=== PATIENT | female | born 1995 | race Caucasian/White ===

== ENCOUNTER → 2020-02-16 10:04 | Outpatient (BNVA) | payer MEDICAID, SELFPAY | PROVIDERS: PCP Registered Nurse; Visit Provider Registered Nurse | DX: N91.2 Amenorrhea, unspecified (principal); Z3A.01 Less than 8 weeks gestation of pregnancy | CPT/HCPCS: 81025 ==

== ENCOUNTER → 2020-02-22 15:06 | Outpatient (BNVA) | payer MEDICAID, SELFPAY | PROVIDERS: PCP Registered Nurse; Visit Provider Nurse Practitioner Women's Health | DX: Z34.90 Encounter for supervision of normal pregnancy, unspecified, unspecified trimester (principal); J30.2 Other seasonal allergic rhinitis | CPT/HCPCS: 76817; 81000 ==

== ENCOUNTER → 2020-03-24 14:27 | Outpatient (BNVA) | payer MEDICAID, SELFPAY | PROVIDERS: PCP Registered Nurse; Visit Provider Obstetrics & Gynecology | DX: O09.91 Supervision of high risk pregnancy, unspecified, first trimester (principal) | CPT/HCPCS: 80053; 80307; 81000 ==

== ENCOUNTER → 2020-03-28 10:37 | Outpatient (BNVA) | payer MEDICAID, SELFPAY | PROVIDERS: PCP Registered Nurse; Visit Provider Obstetrics & Gynecology | DX: O09.91 Supervision of high risk pregnancy, unspecified, first trimester (principal) | CPT/HCPCS: 84156; 85027; 86592; 86762; 86803; 86850; 86900; 87340 ==

== ENCOUNTER → 2020-04-07 14:30 | Outpatient (BNVA) | payer MEDICAID, SELFPAY | PROVIDERS: PCP Nurse Practitioner Family; Visit Provider Obstetrics & Gynecology | DX: O09.299 Supervision of pregnancy with other poor reproductive or obstetric history, unspecified trimester (principal) | CPT/HCPCS: 81000; 87340; 87491; 87591; 88175 ==

== ENCOUNTER → 2020-05-05 11:24 | Outpatient (BNVA) | payer MEDICAID, SELFPAY | PROVIDERS: PCP Nurse Practitioner Family; Visit Provider Nurse Practitioner Women's Health | DX: O09.299 Supervision of pregnancy with other poor reproductive or obstetric history, unspecified trimester (principal); O09.899 Supervision of other high risk pregnancies, unspecified trimester; F17.210 Nicotine dependence, cigarettes, uncomplicated | CPT/HCPCS: 81000 ==

== ENCOUNTER 2020-05-24 08:08 | Outpatient (CLI) | payer MEDICAID, SELFPAY ==
--- NOTE | 2020-05-24 08:14 | USCV_ITS ---
Aayush Erica Age: 25 Gender: F : 1995 Exam Date: 05/24/2020 08:31 Ordering Phys: Rosa Hernandez MD ([email or web address]) Technologist: Kyra Lassiter [place] [facility] [place]: CARDIOM[place]ATH[place] BP: / HR: 86 Rhythm: Sinus Technical Quality: Adequate MEASUREMENTS (Male / Female) Normal Values 2D ECHO LV Diastolic Diameter PLAX 4.5 cm 4.2 - 5.9 / 3.9 - 5.3 cm LV Systolic Diameter PLAX 3.6 cm LV Chamber Size 3.7 cm IVS Diastolic Thickness 1.0 cm 0.6 - 1.0 / 0.6 - 0.9 cm IVS Systolic Thickness 1.5 cm LVPW Diastolic Thickness 1.3 cm 0.6 - 1.0 / 0.6 - 0.9 cm LVPW Systolic Thickness 1.6 cm RV Chamber Size 3.2 cm LVOT Diameter 2.0 cm LV Ejection Fraction 2D Teich 43.6 % LV Ejection Fraction MOD 2C 49.1 % LV Ejection Fraction 2C AL 48.8 % LA Diameter 2.9 cm LA Width 3.0 cm LA Height 4.6 cm RA Width 3.1 cm RA Height 4.2 cm Aorta at Sinotubular Diameter 2.9 cm M-MODE LV Diastolic Diameter MM 5.2 cm 4.2 - 5.9 / 3.9 - 5.3 cm LV Systolic Diameter MM 3.8 cm LV Ejection Fraction MM Teich 53.4 % IVS Diastolic Thickness MM 0.9 cm 0.6 - 1.0 / 0.6 - 0.9 cm IVS Systolic Thickness MM 1.3 cm LVPW Diastolic Thickness MM 1.2 cm 0.6 - 1.0 / 0.6 - 0.9 cm LVPW Systolic Thickness MM 1.5 cm RV Diastolic Diameter MM 1.4 cm Aortic Annulus Diameter 2.9 cm LA Ao Ratio MM 1.2 MV E Point Septal Separation 1.0 cm DOPPLER AV Peak Velocity 158.3 cm/s LVOT Peak Velocity 88.7 cm/s AV Area Cont Eq vti 1.9 cm squared AV Area Cont Eq pk 1.8 cm squared MV Area PHT 9.2 cm squared Mitral E to A Ratio 0.8 MV E' Velocity 55.0 cm/s Mitral E to MV E' Ratio 6.4 Mitral E to LV E' Lateral Ratio 6.3 Mitral E to LV E' Septal Ratio 6.5 TR Peak Velocity 137.1 cm/s TR Peak Gradient 7.5 mmHg TR Mean Velocity 91.3 cm/s TR Mean Gradient 3.7 mmHg TR Velocity Time Integral 28.3 cm TV Peak E Velocity 87.0 cm/s Right Atrial Pressure 3.0 mmHg Pulmonary Artery Systolic Pressu 10.5 mmHg PV Peak Velocity 75.0 cm/s RV Acceleration Time 0.1 s RV Ejection Time 0.3 s RV AcT/ET 0.4 FINDINGS Left Ventricle Normal left ventricular cavity size. Low normal left ventricular systolic function. Left ventricular ejection fraction is estimated at 53 %. Normal diastolic function. Right Ventricle The right ventricle is normal in size and function. Right Atrium The right atrium is normal in size. Left Atrium The left atrium is normal in size. Mitral Valve Structurally normal mitral valve without significant stenosis or prolapse. There is no mitral regurgitation. Aortic Valve Structurally normal aortic valve without significant sclerosis or stenosis. There is no aortic regurgitation. Tricuspid Valve Structurally normal tricuspid valve without significant stenosis or regurgitation. Pulmonary artery systolic pressure is normal. Pulmonic Valve Structurally normal pulmonic valve without significant stenosis. There is no pulmonic regurgitation. Pericardium Normal pericardium without effusion. Aorta Normal ascending aorta dimension. CONCLUSIONS 1-Normal left ventricular cavity size. Low normal left ventricular systolic function. Left ventricular ejection fraction is estimated at 53 %. Normal diastolic function. 2-No significant chamber abnormalities. 3-There is no pericardial effusion. 4-No significant valve abnormalities. 5-Pulmonary artery systolic pressure is within normal limits. 6-Right atrial pressure is around 5 mm of mercury. 7-No significant change since the prior echocardiogram study of 11/11/2017. Rosa Hernandez MD (Electronically Signed) Final Date: 25 May 2020 17:54 S
== END 2020-05-24 08:09 | disposition home or self-care (01) ==
LOC: RAD 08:10
PROVIDERS: PCP Nurse Practitioner Family; Visit Provider Internal Medicine Cardiovascular Disease
DX: I47.1 Supraventricular tachycardia (principal); O09.899 Supervision of other high risk pregnancies, unspecified trimester
CPT/HCPCS: 93306

== ENCOUNTER → 2020-06-05 10:17 | Outpatient (BNVA) | payer MEDICAID, SELFPAY | PROVIDERS: PCP Nurse Practitioner Family; Visit Provider Obstetrics & Gynecology | DX: O09.299 Supervision of pregnancy with other poor reproductive or obstetric history, unspecified trimester (principal); O09.899 Supervision of other high risk pregnancies, unspecified trimester; F17.210 Nicotine dependence, cigarettes, uncomplicated | CPT/HCPCS: 81000 ==

== ENCOUNTER → 2020-06-23 12:13 | Outpatient (BNVA) | payer MEDICAID, SELFPAY | PROVIDERS: PCP Nurse Practitioner Family; Visit Provider Emergency Medicine | DX: N39.0 Urinary tract infection, site not specified (principal); Z33.1 Pregnant state, incidental | CPT/HCPCS: 81000; 87086 ==

== ENCOUNTER → 2020-07-07 09:47 | Outpatient (BNVA) | payer MEDICAID, SELFPAY | PROVIDERS: PCP Nurse Practitioner Family; Visit Provider Obstetrics & Gynecology | DX: O09.299 Supervision of pregnancy with other poor reproductive or obstetric history, unspecified trimester (principal); O09.899 Supervision of other high risk pregnancies, unspecified trimester; F17.210 Nicotine dependence, cigarettes, uncomplicated | CPT/HCPCS: 81000; 82950 ==

== ENCOUNTER → 2020-08-04 08:07 | Outpatient (BNVA) | payer BC, MEDICAID, SELFPAY | PROVIDERS: PCP Nurse Practitioner Family; Visit Provider Obstetrics & Gynecology | DX: O09.299 Supervision of pregnancy with other poor reproductive or obstetric history, unspecified trimester (principal) | CPT/HCPCS: 81000; 85027 ==

== ENCOUNTER → 2020-08-11 08:13 | Outpatient (BNVA) | payer BC, MEDICAID, SELFPAY | PROVIDERS: PCP Nurse Practitioner Family; Visit Provider Obstetrics & Gynecology | DX: O23.43 Unspecified infection of urinary tract in pregnancy, third trimester (principal); Z3A.00 Weeks of gestation of pregnancy not specified | CPT/HCPCS: 81000 ==

== ENCOUNTER → 2020-08-25 08:30 | Outpatient (BNVA) | payer BC, SELFPAY | PROVIDERS: PCP Nurse Practitioner Family; Visit Provider Obstetrics & Gynecology | DX: O09.299 Supervision of pregnancy with other poor reproductive or obstetric history, unspecified trimester (principal); O09.899 Supervision of other high risk pregnancies, unspecified trimester; F17.210 Nicotine dependence, cigarettes, uncomplicated; O23.43 Unspecified infection of urinary tract in pregnancy, third trimester | CPT/HCPCS: 81000 ==

== ENCOUNTER → 2020-09-07 11:08 | Outpatient (BNVA) | payer BC, SELFPAY | PROVIDERS: PCP Nurse Practitioner Family; Visit Provider Obstetrics & Gynecology | DX: Z34.90 Encounter for supervision of normal pregnancy, unspecified, unspecified trimester (principal) | CPT/HCPCS: 81000 ==

== ENCOUNTER 2020-09-15 11:55 | Outpatient (CLI) | payer BC, MEDICAID, SELFPAY ==
[2020-09-15] VITALS (10 sets, daily range): BP systolic 100–120; BP diastolic 51–68; PULSE 73–103; RESP 16; TEMP 36.3
[2020-09-15 13:30] LABS: Add Urine Culture? No; Bacteria Urine 1+ /hpf; Bilirubin Urine Neg (Negative); Blood Urine Neg (Negative); Glucose Urine UA Norm (Normal); Ketones Urine Negative (Negative); Leukocyte Esterase Urine Negative (Negative); Nitrate Urine Negative (Negative); Protein Urine Neg (Negative); Squamous Epithelial Cell Urine 25-40 /hpf (0-5); Urine Appearance SL Hazy (CLEAR); Urine Color Straw (Yellow); Urobilinogen Urine Norm (Negative); pH Urine 8 (5-7)
== END 2020-09-15 14:16 | disposition home or self-care (01) ==
LOC: OPOB 11:57 → OBGYN 11:57
PROVIDERS: PCP Nurse Practitioner Family; Visit Provider Obstetrics & Gynecology
DX: O26.899 Other specified pregnancy related conditions, unspecified trimester (principal); Z3A.00 Weeks of gestation of pregnancy not specified; R10.9 Unspecified abdominal pain
CPT/HCPCS: 59025; 81001; 99211

== ENCOUNTER → 2020-09-22 09:12 | Outpatient (BNVA) | payer BC, MEDICAID, SELFPAY | PROVIDERS: PCP Nurse Practitioner Family; Visit Provider Obstetrics & Gynecology | DX: O16.3 Unspecified maternal hypertension, third trimester (principal); F17.210 Nicotine dependence, cigarettes, uncomplicated; O99.333 Smoking (tobacco) complicating pregnancy, third trimester; Z3A.36 36 weeks gestation of pregnancy | CPT/HCPCS: 81000; 87081 ==

== ENCOUNTER → 2020-12-14 12:38 | Outpatient (BNVA) | payer BC, MEDICAID, SELFPAY | PROVIDERS: PCP Nurse Practitioner Family; Visit Provider Obstetrics & Gynecology | DX: Z30.2 Encounter for sterilization (principal); Z20.822 Contact with and (suspected) exposure to COVID-19 | CPT/HCPCS: 87635 ==

== ENCOUNTER 2020-12-20 07:21 | Day surgery (SDC) | payer BC, MEDICAID, SELFPAY ==
[2020-12-18 12:31] VITALS: BMI 27.6
--- NOTE | 2020-12-18 12:43 | ANES.PREANE2 ---
Pre-Anesthetic Assessment Pre-Anesthetic Assessment: Height/Weight: Height 1.73 m Weight 82.554 kg Preop Diagnosis: Desire permanent sterilization Proposed Procedure: Operation Date: 12/20/20 09:55 Proposed Procedures rodrigo Madison,Removal of Tubes Sterilization 28077 Z30.2(Not Applicable) - Orville Dykes MD Familial anesthetic complications: None Social: Social History: Tobacco and No alcohol Exam: Pre-Anes Outpt Exam: alert, oriented x 3, clear to auscultation bilaterally and regular rate & rhythm Airway: Cervical ROM: WNL MP: 2 Dentition: Chipped (front) and Other (missing) CV/HEM: CV/HEM: Arrythmia (SVT), CHF (takes albuterol when she gets SOB, hasnt used it in months) and HTN (resolved after ) Comments: cardiomyopathy from L&D at age 16 - now states almost back to normal CONCLUSIONS echo 2019 1-Normal left ventricular cavity size. Low normal left ventricular systolic function. Left ventricular ejection fraction is estimated at 53 %. Normal diastolic function. 2-No significant chamber abnormalities. 3-There is no pericardial effusion. 4-No significant valve abnormalities. 5-Pulmonary artery systolic pressure is within normal limits. 6-Right atrial pressure is around 5 mm of mercury. 7-No significant change since the prior echocardiogram study of 11/11/2017. Anesthetic Plan: ASA status: 3 Anesthesia: General Risk of > 500 ml blood loss (7ml/kg in children): No PFSH Anesthesia PFSH: Medical History History of cardiomyopathy Surgical History History of dental surgery History of nephrostomy (~2014) S/P cholecystectomy S/P tonsillectomy Family History Grandfather Hypertension Maternal grandfather Maternal grandfather Diabetes Maternal Grandfather Paternal grandfather Heart disease Maternal grandfather Grandmother Hypertension Maternal grandmother Paternal grandmother Diabetes Maternal grandmother Paternal grandmother Heart disease Maternal grandmother Breast cancer Paternal grandmother Father Diabetes Denies family history of Colon cancer Ovarian cancer Hyperlipidemia Family history of thyroid problem Uterine cancer Stroke Social History (Updated 12/18/20 @ 10:23 by Jessica Hawkins RN) Smoking and tobacco status: current every day smoker cigarettes Packs smoked per day: 0.25 Alcohol intake: never Substance/Drug Use: never Female Reproductive History: Date of last menstrual period: 11/27/20 Data Anesthesia Cardiac Studies: No Data to Display
[2020-12-18 12:51] LABS: OR HCG Qualitative Urine Negative (Negative)
[2020-12-18 13:00] LABS: Basophils % 0.2 %; Eosinophils # 0.1 10^3/uL (0.0-0.8); Eosinophils % 0.7 %; Hematocrit 43.6 % (37.0-47.0); Hemoglobin 13.9 g/dL (11.5-15.3); Lymphocytes # 2.2 10^3/uL (0.8-4.8); Mean Corpuscular HGB Conc 31.9 g/dL (30.0-36.0); Mean Corpuscular Hemoglobin 26.5 pg (28.0-34.0); Mean Corpuscular Volume 83.2 fL (81-99); Mean Platelet Volume 10.5 fL (7.4-10.4); Monocytes # 0.4 10^3/uL (0.2-0.9); Monocytes % 5.1 %; Neutrophils # 5.35 10^3/uL (1.8-7.7); Neutrophils % 66.8 %; Nucleated Red Blood Cells % 0 %; Platelet Count 270 10^3/cmm (130-400); Red Blood Count 5.24 10^6/uL (4.1-5.3); Red Cell Distribution Width 14.1 % (12.1-15.1)
[2020-12-18 13:17] LABS: Add Urine Microscopic? YES; Bilirubin Urine Neg (Negative); Blood Urine Neg (Negative); Glucose Urine UA Norm (Normal); Ketones Urine Negative (Negative); Leukocyte Esterase Urine Negative (Negative); Nitrate Urine Negative (Negative); Protein Urine Neg (Negative); Specific Gravity, Urine 1.005 (1.005-1.030); Sulfosalicylic Acid Urine Negative (Negative); Urine Appearance SL Hazy (CLEAR); Urine Color Yellow (Yellow); Urobilinogen Urine Norm (Negative); pH Urine 9 (5-7)
[2020-12-18 13:18] LABS: Bacteria Urine 1+ /hpf; Squamous Epithelial Cell Urine 15-25 /hpf (0-5); WBC Urine 0-4 /hpf (0-5)
[2020-12-18 13:19] LABS: Add Urine Culture? No
[2020-12-18 13:19] LABS: Anion Gap 15.2 (5-19); Blood Urea Nitrogen 6 mg/dL (6-20); Calcium 8.8 mg/dL (8.5-10.5); Carbon Dioxide 22 mmol/L (22-29); Chloride 106 mmol/L (98-107); Glomerular Filtration Rate 150.3 mL/min (90-130); Glucose 98 mg/dL (65-115); Osmolality Calculated 286 mOsm/kg (285-295); Potassium 4.2 mmol/L (3.5-5.1); Sodium 139 mmol/L (136-145)
[2020-12-20] VITALS (7 sets, daily range): BP systolic 100–128; BP diastolic 66–81; PULSE 63–91; RESP 15–20; TEMP 36.1–36.2; O2SAT 96–99
--- NOTE | 2020-12-20 07:33 | ECG_ITS ---
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 Measurements Intervals [place] Rate: 73 P: 36 CT: 173 QRS: 68 QRSD: 89 T: 61 QT: 438 QTc: 483 Interpretive Statements SINUS RHYTHM Compared to ECG 11/27/2017 11:42:13 No significant changes Electronically Signed On 12-20-2020 17:43:19 CDT by Leon Jean Baptiste M.D. [id number]
--- NOTE | 2020-12-20 07:45 | W.PM.OPSUD ---
Surgery/Procedure H&P Update DATE OF PROCEDURE: December 20, 2020 DATE H&P PERFORMED: 12/18/20 H&P UPDATE INFORMATION: I have reviewed H&P completed within last 30 days, I have examined patient prior to procedure and No changes to prior documentation PREOP DIAGNOSIS: Desire permanent sterilization PLANNED PROCEDURE: Operation Date: 12/20/20 09:15 Proposed Procedures p Lap Fulg,Removal of Tubes Sterilization 07926 Z30.2(Not Applicable) - Orville Dykes MD
[2020-12-20] MEDS: sodium chloride 0.9% 500 ML IV (08:00)
[2020-12-20] MEDS: scopolamine 1.5 Patch 1 PATCH TRANSDERMA (08:50)
--- NOTE | 2020-12-20 08:57 | ANES.PAUD2 ---
Pre-Anesthetic Update Pre-Anesthetic Assessment: Date of Surgery/Procedure: 12/20/20 Preop Diagnosis: Desire permanent sterilization Proposed Procedure: Operation Date: 12/20/20 09:15 Proposed Procedures p Regino Madison,Removal of Tubes Sterilization 71527 Z30.2(Not Applicable) - Orville Dykes MD Any changes to Pre-Anesthetic Assessment?: No Last Intake: Intake Last Liquid Date 12/19/20 Last Liquid Time 21:00 Last Solid Date 12/19/20 Last Solid Time 19:00 Labs Last 48hrs: Laboratory Results - last 48 hr 12/18/20 12/18/20 12/18/20 11:40 11:40 11:40 WBC 8.0 RBC 5.24 Hgb 13.9 Hct 43.6 MCV 83.2 MCH 26.5 L MCHC 31.9 RDW 14.1 Plt Count 270 MPV 10.5 H Neut % (Auto) 66.8 Lymph % (Auto) 27.0 Carolina % (Auto) 5.1 Eos % (Auto) 0.7 Baso % (Auto) 0.2 Neut # (Auto) 5.35 Lymph # (Auto) 2.2 Carolina # (Auto) 0.4 Eos # (Auto) 0.1 Baso # (Auto) 0.0 Nucleated RBC % (a uto) 0 Nucleated RBCs # 0.0 Sodium 139 Potassium 4.2 Chloride 106 Carbon Dioxide 22 Anion Gap 15.2 BUN 6 Creatinine 0.5 GFR Calculation 150.3 H Glucose 98 Calculated Osmolal ity 286 Calcium 8.8 Urine Color Urine Appearance Urine pH Ur Specific Gravit y Urine Protein Urine Glucose (UA) Urine Ketones Urine Blood Urine Nitrate Urine Bilirubin Prot Sulfosalicyli c Acd Urine Urobilinogen Ur Leukocyte Sydnee ase Urine RBC Urine WBC Ur Squamous Epith Cells Amorphous Sediment Urine Bacteria Urine Yeast Urine HCG, Qual Blood Type O Positive Rho(D) Type Positive / 4+ Antibody Screen Negative 12/18/20 12/18/20 12:23 12:30 WBC RBC Hgb Hct MCV MCH MCHC RDW Plt Count MPV Neut % (Auto) Lymph % (Auto) Carolina % (Auto) Eos % (Auto) Baso % (Auto) Neut # (Auto) Lymph # (Auto) Carolina # (Auto) Eos # (Auto) Baso # (Auto) Nucleated RBC % (a uto) Nucleated RBCs # Sodium Potassium Chloride Carbon Dioxide Anion Gap BUN Creatinine GFR Calculation Glucose Calculated Osmolal ity Calcium Urine Color Yellow Urine Appearance Sl hazy Urine pH 9 H Ur Specific Gravit y 1.005 Urine Protein Neg Urine Glucose (UA) Norm Urine Ketones Negative Urine Blood Neg Urine Nitrate Negative Urine Bilirubin Neg Prot Sulfosalicyli c Acd Negative Urine Urobilinogen Norm Ur Leukocyte Sydnee ase Negative Urine RBC None Urine WBC 0-4 H Ur Squamous Epith Cells 15-25 H Amorphous Sediment Not Reportable Urine Bacteria 1+ H Urine Yeast 2+ H Urine HCG, Qual Negative Blood Type Rho(D) Type Antibody Screen Vitals: Pulse Rhythm 12/20/20 07:51 Pulse Strength 3+ Normal 12/20/20 07:51 Oxygen Delivery Me thod 12/20/20 07:51 Exam: Pre-Anes Outpt Exam: alert, oriented x 3 and regular rate & rhythm Additional Exam Findings (including area of procedure): coarse breath sounds b/l Cardiac Studies: No Data to Display
[2020-12-20] MEDS: sodium chloride 0.9% 1,000 ML 30 ML IV (09:00)
--- NOTE | 2020-12-20 10:18 | PM.OP ---
Operative Report Date of procedure: December 20, 2020 Pre-op Diagnosis: Desire permanent sterilization Post-op diagnosis: same Post-op Findings: Normal uterus fallopian tubes and ovaries Procedure Done: Laparoscopic bilateral salpingectomy fulguration Specimens removed/disposition: Left and right fallopian tube Pathology: Left and right fallopian tubes Surgeon: Orville Dykes MD Anesthesia: General Estimated blood loss (mL): 5 IV fluids (mL): 700 Urine output (mL): 400 Condition: stable Disposition: PACU Brief History: 25-year-old female G3, P3 desires permanent sterilization with history of cardiomyopathy. Procedure: After informed consent, the patient was taken to the operating room where general anesthesia was administered. She was placed in the dorsal lithotomy position and prepped and draped in sterile fashion. Pre-Procedure Time-Out verifying the correct patient identity, correct procedure verified with consent, correct site and side, correct patient position, availability of correct implants and any special equipment or requirements was performed and acknowledge by the OR team. The patient was examined under anesthesia and found to have a normal uterus with normal adnexa. A weighted speculum was placed in the vagina, and the anterior lip of cervix was grasped with the single toothed tenaculum. A uterine manipulator was advanced into the endocervical canal and uterus. The tenaculum was removed after uterine manipulator was secured. The speculum was removed from the vagina. An intraumbilical incision was made with a scalpel. While tenting up on the abdomen, a Verres needle was admitted into the intra-abdominal cavity. A saline drop test was performed and noted to be within normal limits. Pneumoperitoneum was attained with 4 liters of carbon dioxide. The Verres needle was removed. A 5 mm Opitc view trocar and sleeve were admitted into the abdomen and laparoscopic confirmation of location was achieved. A second incision was made 3 cm above the symphysis pubis, and a 5 mm trocar sleeves were admitted into the abdomen under direct laparoscopic visualization without complication. A survey revealed normal abdominal anatomy with the exception of string adhesion to the right lower anterior abdominal wall. A 5 mm blunt probe was advanced through the second trocar sleeve, and light manipulation of ovaries and uterus to assess the posterior aspects was performed. The pelvic survey shows normal uterus, left and right adnexa. The left ovary was noted with a follicular cyst. The string adhesion was fulgurated and transected with good hemostasis with the Voyant. The patient was placed into Trendelenburg position. The fallopian tubes were inspected bilaterally and the fimbriated ends of the fallopian tubes were visualized bilaterally. Attention was then directed to the right side. The fallopian tube and mesosalpinx were grasped and the underlying mesosalpinx was cauterized and cut using the Voyant device. Serial cauterization and cutting was used to separate the fallopian tube from the underlying mesosalpinx until it could be amputated cutting it approximated 2 cm from the cornua. Attention was then turned to the contralateral fallopian tube, which was removed in similar fashion. Both specimens were removed through the trocar and sent to pathology. The instruments were removed. The suprapubic trocar port was removed under direct visualization insuring good hemostasis. The carbon dioxide was allowed to escape from the abdomen. The intraumbilical trocar sleeve was withdrawn under visualization with laparoscope in the sleeve to insure hemostasis. The skin incisions were closed with 3-O Vicryl subcuticular stich and Dermabond. The instruments were removed from the vagina, and excellent hemostasis was noted. The patient tolerated the procedure well, and sponge, lap and needle count were correct times two. The patient was taken to the recovery room in good condition.
--- NOTE | 2020-12-20 10:40 | SUR.PHASEII ---
patient into phase 2 stating pain at 10/10 and patient is crying.
[2020-12-20] MEDS: HYDROcodone-acetaminophen 5-325 mg Tablet 1 TAB PO (10:58)
--- NOTE | 2020-12-20 13:52 | ANE.PACU2 ---
Inpatient post-anesthesia follow up: Airway intact: Yes Vital signs: Temperature 97.1 F Pulse Rate 65 Respiratory Rate 18 Blood Pressure 116/81 Pulse Oximetry 99 Oxygen Delivery Me thod Room Air Oxygen Flow Rate Fraction of Inspir ed Oxygen Hydration adequate: Yes Nausea and vomiting: No Pain level: 3 Mental status: Baseline
== END 2020-12-20 11:30 | disposition home or self-care (01) ==
PROVIDERS: PCP Nurse Practitioner Family; Visit Provider Obstetrics & Gynecology
PROC: (CPT 58661; principal; 2020-12-20 09:15)
DX: Z30.2 Encounter for sterilization (principal); F17.210 Nicotine dependence, cigarettes, uncomplicated
CPT/HCPCS: 58661; 36415; 80048; 81001; 81025; 84703; 85025; 86850; 86900; 88302; 93005; 96365; J0690; J1100; J2405; J2704; J2710; J3010; J3490; J7030; J7040

== ENCOUNTER → 2021-04-23 10:20 | Outpatient (BNVA) | payer BC, MEDICAID, SELFPAY | PROVIDERS: PCP Nurse Practitioner Family; Visit Provider Nurse Practitioner | DX: M25.571 Pain in right ankle and joints of right foot (principal) | CPT/HCPCS: 73630 ==

== ENCOUNTER → 2021-05-11 13:31 | Outpatient (BNVA) | payer BC, MEDICAID, SELFPAY | PROVIDERS: PCP Nurse Practitioner Family; Visit Provider Obstetrics & Gynecology | DX: N92.0 Excessive and frequent menstruation with regular cycle (principal) | CPT/HCPCS: 84146; 84443; 85025 ==

== ENCOUNTER → 2021-05-24 15:12 | Outpatient (BNVA) | payer BC, MEDICAID, SELFPAY | PROVIDERS: PCP Nurse Practitioner Family; Visit Provider Obstetrics & Gynecology | DX: N92.1 Excessive and frequent menstruation with irregular cycle (principal) | CPT/HCPCS: 76830 ==

== ENCOUNTER → 2021-06-29 09:37 | Outpatient (BNVA) | payer BC, MEDICAID, SELFPAY | PROVIDERS: PCP Nurse Practitioner Family; Visit Provider Obstetrics & Gynecology | DX: Z20.822 Contact with and (suspected) exposure to COVID-19 (principal) | CPT/HCPCS: 87635 ==

== ENCOUNTER 2021-07-04 08:11 | Observation (INO) | payer BC, MEDICAID, SELFPAY ==
[2021-07-02 11:58] VITALS: BMI 27.3
--- NOTE | 2021-07-02 12:02 | ECG_ITS ---
[facility] Test Date: 2021-07-02 Pat Name: Erica Looney Department: Room: Gender: Female Ms Access Database Developer: : 1995 Requested By: Ev Wilkes Order Number: [id number] Nadine MD: Leon Jean Baptiste M.D. Measurements Intervals [place] Rate: 78 P: 49 KS: 149 QRS: 72 QRSD: 90 T: 53 QT: 385 QTc: 440 Interpretive Statements SINUS RHYTHM Compared to ECG 12/20/2020 08:18:22 No significant changes Electronically Signed On 07-02-2021 17:02:22 MOLD DUMPER by Leon Jean Baptiste M.D. [id number]
--- NOTE | 2021-07-02 12:13 | ANES.PREANE2 ---
Pre-Anesthetic Assessment Pre-Anesthetic Assessment: Height/Weight: Height 1.73 m Weight 81.647 kg Preop Diagnosis: Desire permanent sterilization Proposed Procedure: Operation Date: 07/04/21 07:00 Proposed Procedures p Total Vaginal Hysterectomy 77845 N92.0(Not Applicable) - Orville Dykes MD Familial anesthetic complications: none Social: Social History: Tobacco and No alcohol Exam: Pre-Anes Outpt Exam: alert, oriented x 3, clear to auscultation bilaterally and regular rate & rhythm Airway: MP: 2 Dentition: Chipped CV/HEM: CV/HEM: CHF (peripartum) and HTN Comments: CONCLUSIONS echo 2019 1-Normal left ventricular cavity size. Low normal left ventricular systolic function. Left ventricular ejection fraction is estimated at 53 %. Normal diastolic function. 2-No significant chamber abnormalities. 3-There is no pericardial effusion. 4-No significant valve abnormalities. 5-Pulmonary artery systolic pressure is within normal limits. 6-Right atrial pressure is around 5 mm of mercury. 7-No significant change since the prior echocardiogram study of 11/11/2017. Anesthetic Plan: ASA status: 2 Anesthesia: General Risk of > 500 ml blood loss (7ml/kg in children): No PFSH Anesthesia PFSH: Medical History (Updated 05/11/21 @ 13:24 by Orville Dykes MD) History of cardiomyopathy Surgical History (Updated 05/11/21 @ 12:59 by Isabell Chamorro LPN) History of dental surgery History of nephrostomy (~2014) S/P cholecystectomy S/P tonsillectomy Family History Grandfather Hypertension Maternal grandfather Maternal grandfather Diabetes Maternal Grandfather Paternal grandfather Heart disease Maternal grandfather Grandmother Hypertension Maternal grandmother Paternal grandmother Diabetes Maternal grandmother Paternal grandmother Heart disease Maternal grandmother Breast cancer Paternal grandmother Father Diabetes Denies family history of Colon cancer Ovarian cancer Hyperlipidemia Family history of thyroid problem Uterine cancer Stroke Social History (Updated 07/02/21 @ 09:34 by Jessica Hawkins RN) Smoking and tobacco status: current every day smoker cigarettes Packs smoked per day: 0.25 Alcohol intake: never Substance/Drug Use: never Female Reproductive History: Date of last menstrual period: 01/11/20 Data Anesthesia Cardiac Studies: No Data to Display
[2021-07-02 12:16] LABS: OR HCG Qualitative Urine Negative (Negative)
[2021-07-02 12:41] LABS: Basophils % 0.3 %; Eosinophils % 0.3 %; Hematocrit 41.5 % (37.0-47.0); Hemoglobin 13.8 g/dL (11.5-15.3); Lymphocytes # 1.8 10^3/uL (0.8-4.8); Lymphocytes % 25.4 %; Mean Corpuscular HGB Conc 33.3 g/dL (30.0-36.0); Mean Corpuscular Hemoglobin 27.4 pg (28.0-34.0); Mean Corpuscular Volume 82.5 fl (81-99); Mean Platelet Volume 10.3 fL (7.4-10.4); Monocytes # 0.3 10^3/uL (0.2-0.9); Monocytes % 4.4 %; Neutrophils # 4.89 10^3/uL (1.8-7.7); Platelet Count 270 10^3/cmm (130-400); Red Blood Count 5.03 10^6/uL (4.1-5.3); Red Cell Distribution Width 13.5 % (12.1-15.1); White Blood Count 7.1 10^3/uL (4.0-10.0)
[2021-07-02 12:42] LABS: Nucleated Red Blood Cells % 0 %
[2021-07-02 13:00] LABS: Add Urine Microscopic? NO; Charge for UA Resulting for Rev
[2021-07-02 13:22] LABS: Urine Appearance Hazy (CLEAR); Urine Color Yellow (Yellow); pH Urine 7 (5-7)
[2021-07-02 13:23] LABS: Bilirubin Urine Neg (Negative); Blood Urine Neg (Negative); Glucose Urine UA Norm (Normal); Ketones Urine Negative (Negative); Leukocyte Esterase Urine Negative (Negative); Nitrate Urine Negative (Negative); Protein Urine Neg (Negative); Urobilinogen Urine Norm (Negative)
[2021-07-02 13:25] LABS: Alanine Aminotransferase 6 U/L (0-33); Albumin Level 4.3 g/dL (3.5-5.2); Alkaline Phosphatase 108 IU/L (35-105); Anion Gap 15.9 (5-19); Aspartate Amino Transferase 9 U/L (0-32); Blood Urea Nitrogen 6 mg/dL (6-20); Calcium 8.4 mg/dL (8.5-10.5); Carbon Dioxide 21 mmol/L (22-29); Chloride 105 mmol/L (98-107); Globulin 2.7 g/dL (1.3-4.6); Glomerular Filtration Rate 120.8 mL/min (90-130); Glucose 90 mg/dL (65-115); Osmolality Calculated 283 mOsm/kg (285-295); Potassium 3.9 mmol/L (3.5-5.1); Sodium 138 mmol/L (136-145); Total Bilirubin 0.4 mg/dL (0.15-1.2)
[2021-07-04] VITALS (15 sets, daily range): BP systolic 99–135; BP diastolic 59–89; PULSE 61–100; RESP 14–19; TEMP 36.3–36.8; O2SAT 95–100
[2021-07-04] MEDS: scopolamine 1.5 Patch 1 PATCH TRANSDERMA (06:22)
[2021-07-04] MEDS: sodium chloride 0.9% 1,000 ML 30 ML IV (06:22)
[2021-07-04] MEDS: sodium chloride 0.9% 500 ML IV (06:22)
--- NOTE | 2021-07-04 06:41 | P.ANESUD_ITS ---
Pre-Anesthetic Update Pre-Anesthetic Assessment: Date of Surgery/Procedure: 07/04/21 Preop Ana gnosis: Abnormal uterine bleeding, menorrhagia Proposed Procedure: Operation Date: 07/04/21 07:00 Proposed Procedures p Total Vaginal Hysterectomy 98805 N92.0(Not Applicable) - Orville Dykes MD Any changes to Pre-Anesthetic Assessment?: No Last Intake: Intake Last Liquid Date 07/03/21 Last Liquid Time 23:00 Last Solid Date 07/03/21 Last Solid Time 23:00 Labs Last 48hrs: Laboratory Results - last 48 hr 07/02/21 07/02/21 07/02/21 11:50 11:57 12:09 WBC 7.1 RBC 5.03 Hgb 13.8 Hct 41.5 MCV 82.5 MCH 27.4 L MCHC 33.3 RDW 13.5 Plt Count 270 MPV 10.3 Neut % (Auto) 69.0 Lymph % (Auto) 25.4 Wheeler % (Auto) 4.4 Eos % (Auto) 0.3 Baso % (Auto) 0.3 Neut # (Auto) 4.89 Lymph # (Auto) 1.8 Wheeler # (Auto) 0.3 Eos # (Auto) 0.0 Baso # (Auto) 0.0 Nucleated RBC % (a uto) 0 Nucleated RBCs # 0.0 Sodium Potassium Chloride Carbon Dioxide Anion Gap BUN Creatinine GFR Calculation Glucose Calculated Osmolal ity Calcium Total Bilirubin AST ALT Alkaline Phosphata se Total Protein Albumin Globulin Urine Color Yellow Urine Appearance Hazy A Urine pH 7 Ur Specific Gravit y 1.000 L Urine Protein Neg Urine Glucose (UA) Norm Urine Ketones Negative Urine Blood Neg Urine Nitrate Negative Urine Bilirubin Neg Urine Urobilinogen Norm Ur Leukocyte Sydnee ase Negative Urine HCG, Qual Negative Blood Type Rho(D) Type Antibody Screen 07/02/21 07/02/21 12:09 12:09 WBC RBC Hgb Hct MCV MCH MCHC RDW Plt Count MPV Neut % (Auto) Lymph % (Auto) Wheeler % (Auto) Eos % (Auto) Baso % (Auto) Neut # (Auto) Lymph # (Auto) Wheeler # (Auto) Eos # (Auto) Baso # (Auto) Nucleated RBC % (a uto) Nucleated RBCs # Sodium 138 Potassium 3.9 Chloride 105 Carbon Dioxide 21 L Anion Gap 15.9 BUN 6 Creatinine 0.6 GFR Calculation 120.8 Glucose 90 Calculated Osmolal ity 283 L Calcium 8.4 L Total Bilirubin 0.4 AST 9 ALT 6 Alkaline Phosphata se 108 H Total Protein 7.0 Albumin 4.3 Globulin 2.7 Urine Color Urine Appearance Urine pH Ur Specific Gravit y Urine Protein Urine Glucose (UA) Urine Ketones Urine Blood Urine Nitrate Urine Bilirubin Urine Urobilinogen Ur Leukocyte Sydnee ase Urine HCG, Qual Blood Type O Positive Rho(D) Type Positive Antibody Screen Negative Vitals: Temperature 97.7 F 07/04/21 06:15 Temperature Source Temporal Artery S can 07/04/21 06:15 Pulse Rate 84 07/04/21 06:15 Respiratory Rate 18 07/04/21 06:15 Blood Pressure 115/75 07/04/21 06:15 Blood Pressure Love n 88 07/04/21 06:15 Pulse Oximetry 97 07/04/21 06:15 Oxygen Delivery Me thod 07/04/21 06:15 Exam: Pre-Anes Outpt Exam: alert, oriented x 3, clear to auscultation bilaterally and regular rate & rhythm Cardiac Studies: No Data to Display
--- NOTE | 2021-07-04 06:54 | W.PM.OPSUD ---
Surgery/Procedure H&P Update DATE OF PROCEDURE: July 04, 2021 DATE H&P PERFORMED: 07/02/21 H&P UPDATE INFORMATION: I have reviewed H&P completed within last 30 days, I have examined patient prior to procedure and No changes to prior documentation PREOP DIAGNOSIS: Abnormal uterine bleeding, menorrhagia PLANNED PROCEDURE: Operation Date: 07/04/21 07:00 Proposed Procedures p Total Vaginal Hysterectomy 19607 N92.0(Not Applicable) - Orville Dykes MD
[2021-07-04] MEDS: ceFOXitin 2,000 MG in sodium chloride 0.9% (plus) 50 ML 100 MG IV (06:57)
--- NOTE | 2021-07-04 08:12 | P.OP_ITS ---
Operative Report Date of procedure: July 04, 2021 Pre-op Diagnosis: Abnormal uterine bleeding, menorrhagia Post-op diagnosis: same Procedure Done: Total vaginal hysterectomy Specimens removed/disposition: Uterus Pathology: Uterus Surgeon: Orville Dykes MD Anesthesia: General Estimated blood loss (mL): 50 IV fluids (mL): 600 Urine output (mL): 200 Complications: None Condition: stable Disposition: PACU Brief History: Mrs. Looney 26-year-old female G3, P3, with menorrhagia unresponsive to medical management. Significant past medical history cardiomyopathy. She developed cardiomyopathy after the first . Procedure: After informed consent and risks, benefits, indications and alternatives reviewed with the patient was taken to the operating room. The patient was placed in dorsal lithotomy position prepped, and draped in the usual sterile fashion. The pre-procedure timeout verifying the correct patient, procedure, site and side, could not requirements was performed and acknowledge by the OR team. A Fried catheter was placed. A Bookwalter vaginal retractor was placed into the vagina in usual manner visualize the cervix. Cervix was grasped with a single tooth tenaculum and circumferentially infiltrated with 2% Xylocaine with epinephrine. Then cervix was circumferentially incised with bovie and the bladder was dissected off the pubovesical cervical fascia anterior ly with a sponge stick and Metzenbaum scissors. The anterior peritoneal reflection was identified and the anterior cul-de-sac was entered sharply with Metzenbaum scissors. The same procedure was performed posteriorly and a posterior colpotomy was made through the posterior cul-de-sac space without difficulty and the posterior blade of the Bookwalter vaginal retractor was advanced posteriorly into the cul-de-sac. At this time, the left and right uterosacral ligaments were isolated and ligated with 0 Vicryl. The Enseal device was placed over the uterosacral ligaments on either side and was then used in a serial fashion up through the cardinal ligaments bilaterally cross-clamped, cut, and sealed with the Enseal device. Finally, the uterine arteries were cross-clamped, cut, sealed and ligated with the Enseal device. Hemostasis was assured. The broad ligaments were then serially clamped, sealed and cut with the Enseal device on both sides. Excellent hemostasis was visualized. Both cornua were clamped, sealed and cut with the Enseal device. Then the pedicles were then suture ligated with excellent hemostasis. The uterus was excised and submitted for pathologic evaluation. No other abnormalities were noted in the pelvic cavity. The peritoneum was then closed in a pursestring fashion with 0 Vicryl suture. Patient was given indigo carmine IV. the vaginal cuff angles were closed with [id number] #0 Vicryl suture on both sides and transfixed with the ipsilateral cardinal and uterosacral ligaments. The remainder of the vaginal cuff was closed with #0 Vicryl in a running locked fashion. At this time, instruments were removed from the vagina at hemostasis assured. Then the Fried catheter was removed and cystoscope was inserted. The bladder was filled with sterile water. Complete evaluation of the bladder mucosa was performed noting no lacerations, dimpling, tears, bleeding of the mucosa or muscular layers. Both ureteral orifices were identified. Prompt excretion of urine from both ureteral orifices was noted. Cystoscope was withdrawn. Fried catheter was then placed yielding clear cliff urine. The patient was taken out of dorsal lithotomy position and awakened from the general anesthesia. The patient tolerated the procedure well and was taken to the PACU recovery room in a stable condition. Sponge, lap, needle and instruments counts were correct x3.
--- NOTE | 2021-07-04 08:36 | SUR.PHASEI ---
PT AWAKES TO TOUCH , PT OPENS EYES KNOWS NAME, NODS NO TO PAIN AND NAUSEA, RESP EVEN AND UNLABORED,VSS. IV PATENT WELSH TO DD WITH STATLOCK TO RT THIGH, WITH BLUE URINE NOTED TO TUBING AND BAG. ABD SOFT ADRIEL PAD D/I PT AWAKES AND TAKING OCC ICE CHIPS UPDATED BY DR MARTE AND WILL BE IN OB WAITING ROOM.
--- NOTE | 2021-07-04 10:00 | PC.NURSE ---
Patient brought from PACU at this time, patient very sleepy at time of arrival to unit.
[2021-07-04] MEDS: ketorolac 30 mg/mL INJ IVP ×3 (10:26→22:29)
[2021-07-04] MEDS: dextrose 5%-lactated ringers 1,000 ML 125 ML IV (10:26)
[2021-07-04] MEDS: nicotine 21 mg Patch 1 PATCH TRANSDERMA (13:05)
--- NOTE | 2021-07-04 13:43 | ANE.PACU2 ---
Inpatient post-anesthesia follow up: Airway intact: Yes Vital signs: Temperature 98.3 F Pulse Rate 62 Respiratory Rate 18 Blood Pressure 106/64 Pulse Oximetry 98 Oxygen Delivery Me thod Room Air Oxygen Flow Rate 2 Fraction of Inspir ed Oxygen Hydration adequate: Yes Nausea and vomiting: No Pain level: 2 Mental status: Baseline
--- NOTE | 2021-07-04 16:20 | PC.NURSE ---
Pt up ambulating in hallway and around nurses station x3 laps, pt did well without any difficulties
[2021-07-04] MEDS: HYDROcodone-acetaminophen 5-325 mg Tablet PO (17:18)
[2021-07-04] MEDS: docusate sodium 100 mg Capsule PO (17:18)
[2021-07-05] MEDS: HYDROcodone-acetaminophen 5-325 mg Tablet PO (00:15)
[2021-07-05 04:00] VITALS: BP 116/54; PULSE 68
[2021-07-05 05:03] LABS: Hematocrit 37.1 % (37.0-47.0); Hemoglobin 12.2 g/dL (11.5-15.3); Mean Corpuscular HGB Conc 32.9 g/dL (30.0-36.0); Mean Corpuscular Hemoglobin 27.6 pg (28.0-34.0); Mean Corpuscular Volume 83.9 fl (81-99); Mean Platelet Volume 10.4 fL (7.4-10.4); Platelet Count 224 10^3/cmm (130-400); Red Blood Count 4.42 10^6/uL (4.1-5.3); Red Cell Distribution Width 13.4 % (12.1-15.1); White Blood Count 12.2 10^3/uL (4.0-10.0)
--- NOTE | 2021-07-05 06:12 | P.DS_ITS ---
Discharge Providers FOOD AND BEVERAGE ASSISTANT MANAGER Date of Admission: 07/04/21 08:11 Date of Discharge: 07/05/21 Attending Provider at Admission: Orville Dykes MD Attending Provider at Discharge: Orville Dykes MD Primary Care Provider: Maurice Pemberton APRN Diagnoses at Discharge Discharge Diagnosis (1) Status post vaginal hysterectomy: Status: Acute Reason for Visit Reason for Visit: Menorrhagia Hospital Course Hospital Course 6. 26-year-old female G3, P3 post tubal ligation and history of cardiomyopathy and menorrhagia unresponsive to medical management admitted for planned total vaginal hysterectomy. The procedure was performed without complication. Overnight observation uneventful. She is status post total vaginal hysterectomy postoperative day 1, afebrile hemodynamically stable. Tolerating diet well. Adequate urine output. Ambulating without difficulty. Physical Exam Narrative: EXAM NARRATIVE: GA: Alert and oriented ?3. HEENT: WNL. Heart: Regular rate and rhythm. Lungs: Clear to auscultation bilaterally. Abdomen: Bowel sounds present, nontender, minimal tenderness, incision clean and dry, no redness, pain or edema. FAVOR MAKER: No bleeding. Extremities: No edema, no cyanosis, no calves pain. Urinary Catheter Management^: Fried: Cath Placed During This Visit: yes Urinary Catheter Date of Insertion: 07/04/21 Urinary Catheter Time of Insertion: 07:23 History History History 3 Term 2 Miscarriages/Ectopic 0 1 Living Children 3 Discharge Data Data Completed and Pending: Pending at discharge Category Date Time Status Pathology: Surgic al [PTH] Routine Pth 07/04/21 08:21 Received Labs from last 24 hours 07/05/21 04:45 WBC 12.2 H RBC 4.42 Hgb 12.2 Hct 37.1 MCV 83.9 MCH 27.6 L MCHC 32.9 RDW 13.4 Plt Count 224 MPV 10.4 Vitals: Last Vital Signs Temp 98.0 F 07/04/21 14:05 Pulse 67 07/04/21 22:00 Resp 14 07/04/21 22:00 BP 103/59 07/04/21 22:00 Pulse Ox 97 07/04/21 22:00 Discharge Plan Discharge Patient Disposition: Home Condition: Stable Prescriptions: New ibuprofen 800 mg tablet 800 mg PO TID PRN (Reason: pain) Qty: 60 RF: 0 hydrocodone-acetaminophen 5-325 mg tablet 1 tab PO Q4H PRN (Reason: pain) Qty: 30 RF: 0 acetaminophen 325 mg capsule 325 mg PO Q4H PRN (Reason: fever or pain) Qty: 60 RF: 0 Continued albuterol sulfate [Ventolin HFA] 90 mcg/actuation HFA aerosol inhaler 2 puff INHALATION Q6H PRN (Reason: breathing difficulty) RF: 0 acetaminophen 325 mg capsule 325 mg PO Q4H PRN (Reason: fever or pain) Qty: 60 RF: 0 Discharge Orders: Discharge Order (Routine); Ordered 07/05/21 Ordered By: Orville Dykes Referrals: Orville Dykes MD [Physician] - 2 weeks Discharge Diet: Usual diet Discharge Activity: Increase activity as tolerated Patient Instructions: Hysterectomy (GEN), Vaginal Hysterectomy (GEN), Opioid Safety Activity Restrictions/Additional Instructions: 1. Please call [facility] on next working day to make your post-operative appointment in 2 weeks. 2. Please stay home until you come back to the clinic on first post-operative check up. 3. Please follow instructions on your medications CAREFULLY. 4. If you have abdominal incision, do not cover it unless dressing is necessary because of drainage. OK to shower, but avoid bath. Leave steri-strips until they fall off. If they are still on one week after surgery, you may remove them. 5. If you had vaginal surgery or vaginal repair, Dr. Dykes may instruct you to take SITZ bath. 6. Yellow, blood tinged odorous vaginal discharge is usually normal after hysterectomy or vaginal surgeries. 7. No sexual intercourse, tampons, or douches until you are completely released from the post-operative care. 8. Avoid constipation by eating right and maybe using some Metamucil or Milk of Magnesia. 9. All prescription refills are given during the working hours. Please do no wait till it runs out. Call the clinic at [phone] before your medication runs out. The clinic will get in touch with your doctor to prescribe medications if necessary. 10. Please remain within 40 mile radius from our hospital because emergencies do happen now and then during the post-operative period. 11. If you have stairs at home, take one step at a time slowly and minimize the number of trips. It helps to stay in one floor for the next few days. No lifting except what you can lift by one hand until you are released from the post-operative care. 12. Driving is discouraged until you are well healed. It may be 3-4 weeks before you feel strong enough to drive. You should be able to turn and look through the rear window without pain and you should be able to push the brake pedal very hard without pain before you drive. No fast rules, but SAFETY should be your primary concern. DO NOT drive if you are on sedating medications such as narcotics. 13. Call the clinic (during working hours) to make urgent appointment or go to the Emergency room, if any of the following occurs: i. Vaginal bleeding becomes heavy, more than a period. ii. Incision becomes red and sore, or drains pus. iii. Your temperature is over 100.4 or you have chill. iv. IV site becomes red and swollen (a little ``knot?? is usually OK) v. Persistent nausea and vomiting vi. Persistent constipation or diarrhea vii. Rash or allergic reaction to medications. Discharge Attestations FOOD AND BEVERAGE ASSISTANT MANAGER Time Spent in Discharge Care*: greater than 30 min Coding Level of Care Code Acute Hide Salter for Chg Fwd Diagnoses Status post vaginal hysterectomy Z90.710
[2021-07-05 08:00] VITALS: BP 117/57; PULSE 74; RESP 16; TEMP 36.9; O2SAT 99
== END 2021-07-05 08:00 | disposition home or self-care (01) ==
LOC: OBGYN 08:11
PROVIDERS: Admitting Provider Obstetrics & Gynecology; PCP Nurse Practitioner Family; Visit Provider Obstetrics & Gynecology
PROC: (CPT 58260; principal; 2021-07-04 07:00)
DX: N92.0 Excessive and frequent menstruation with regular cycle (principal); I42.9 Cardiomyopathy, unspecified; F17.210 Nicotine dependence, cigarettes, uncomplicated
CPT/HCPCS: 58260; 36415; 51702; 80053; 81003; 81025; 84703; 85025; 85027; 86850; 86900; 88307; 93005; G0378; J0694; J1100; J1170; J1200; J1885; J2405; J2704; J2710; J3010; J3490; J7030; J7040

== ENCOUNTER → 2022-01-06 17:09 | Outpatient (BNVA) | payer BC, MEDICAID, SELFPAY | PROVIDERS: PCP Nurse Practitioner Family; Visit Provider Registered Nurse Neonatal Intensive Care | DX: S49.91XA Unspecified injury of right shoulder and upper arm, initial encounter (principal); X58.XXXA Exposure to other specified factors, initial encounter | CPT/HCPCS: 73030 ==

== ENCOUNTER → 2023-05-21 08:51 | Outpatient (BNVA) | payer BC, MEDICAID, SELFPAY | PROVIDERS: PCP Registered Nurse; Visit Provider Registered Nurse | DX: F41.8 Other specified anxiety disorders (principal); Z00.00 Encounter for general adult medical examination without abnormal findings | CPT/HCPCS: 80053; 84443; 85025 ==

== ENCOUNTER → 2023-10-23 11:31 | Outpatient (BNVA) | payer BC, MEDICAID, SELFPAY | PROVIDERS: PCP Clinical Nurse Specialist Adult Health; Visit Provider Clinical Nurse Specialist Adult Health | DX: R55 Syncope and collapse (principal); G43.C0 Periodic headache syndromes in child or adult, not intractable | CPT/HCPCS: 80048; 82962 ==

== ENCOUNTER 2023-11-17 12:56 | Outpatient (CLI) | payer BC, MEDICAID, SELFPAY ==
--- NOTE | 2023-11-17 13:04 | XRR_ITS ---
PROCEDURE INFORMATION: Exam: XR Right Knee Exam date and time: 11/17/2023 1:07 PM Age: 28 years old Clinical indication: Injury or trauma; Fall; Blunt trauma; Knee; Right; Additional info: Right knee pain, fell and hyperextended her knee TECHNIQUE: Imaging protocol: Radiologic exam of the right knee. Views: 3 views. COMPARISON: CR XR knee RT 3V* [id number] 06/23/2019 11:22 AM FINDINGS: Bones/joints: Normal. No acute osseous, joint, or soft tissue abnormality. Soft tissues: Normal. XR/XR knee RT 3V* [id number] IMPRESSION: No acute findings.
== END 2023-11-17 12:57 | disposition home or self-care (01) ==
PROVIDERS: PCP Clinical Nurse Specialist Adult Health; Visit Provider Clinical Nurse Specialist Adult Health
DX: M25.561 Pain in right knee (principal)
CPT/HCPCS: 73562

== ENCOUNTER → 2024-02-12 11:42 | Outpatient (BNVA) | payer BC, MEDICAID, SELFPAY | PROVIDERS: PCP Clinical Nurse Specialist Adult Health; Visit Provider Clinical Nurse Specialist Adult Health | DX: R30.0 Dysuria (principal) | CPT/HCPCS: 81000; 87086 ==

== ENCOUNTER → 2024-03-17 07:37 | Outpatient (BNVA) | payer SELFPAY | PROVIDERS: PCP Clinical Nurse Specialist Adult Health; Visit Provider Clinical Nurse Specialist Adult Health | DX: K04.7 Periapical abscess without sinus (principal) | CPT/HCPCS: 85025; 85651; 86140 ==

== ENCOUNTER → 2024-08-16 13:29 | Outpatient (BNVA) | payer MEDICAID, SELFPAY | PROVIDERS: PCP Clinical Nurse Specialist Adult Health; Visit Provider Clinical Nurse Specialist Adult Health | DX: Z00.00 Encounter for general adult medical examination without abnormal findings (principal); G43.C0 Periodic headache syndromes in child or adult, not intractable; F41.1 Generalized anxiety disorder; F41.8 Other specified anxiety disorders | CPT/HCPCS: 85025 ==

== ENCOUNTER → 2024-08-18 07:46 | Outpatient (BNVA) | payer MEDICAID, SELFPAY | PROVIDERS: PCP Clinical Nurse Specialist Adult Health; Visit Provider Clinical Nurse Specialist Adult Health | DX: Z00.00 Encounter for general adult medical examination without abnormal findings (principal); G43.C0 Periodic headache syndromes in child or adult, not intractable; F41.1 Generalized anxiety disorder; F41.8 Other specified anxiety disorders; I10 Essential (primary) hypertension; R73.03 Prediabetes; R53.83 Other fatigue | CPT/HCPCS: 80053; 82728; 83036; 83540; 84443; 85025 ==

== ENCOUNTER → 2024-10-12 09:05 | Outpatient (BNVA) | payer MEDICAID, SELFPAY | PROVIDERS: PCP Clinical Nurse Specialist Adult Health; Visit Provider Family Medicine | DX: J02.9 Acute pharyngitis, unspecified (principal) | CPT/HCPCS: 87880 ==

== ENCOUNTER 2024-12-08 14:20 | Emergency (ER) | payer MEDICAID, SELFPAY ==
[2024-12-08 14:24] VITALS: BP 114/77; PULSE 102; RESP 18; TEMP 36.9; O2SAT 98; BMI 26.6
--- NOTE | 2024-12-08 14:29 | ECG_ITS ---
[facility] Test Date: 2024-12-08 Pat Name: Erica Looney Department: Room: Gender: Female Director Foundation: : 1995 Requested By: Gila Feliz Order Number: [id number] Nadine MD: LUIS GAYLE Measurements Intervals [place] Rate: 99 P: 75 MI: 158 QRS: 73 QRSD: 88 T: 56 QT: 342 QTc: 440 Interpretive Statements SINUS RHYTHM WITH SINUS ARRHYTHMIA Compared to ECG 07/02/2021 12:08:13 No significant changes Electronically Signed On 12-09-2024 23:31:39 CDT by LUIS GAYLE [id number] [id number]
--- NOTE | 2024-12-08 14:50 | XR_ITS ---
WS: [id number] Exam: XR chest 1V portable [id number] Date/Time of Exam: 12/08/2024 3:03 PM Reason For Exam: cp Comparison 05/14/2016. Lungs are clear and fully inflated. Normal cardiomediastinal silhouette and regional bony elements. No pleural effusion. XR/XR chest 1V portable [id number] IMPRESSION: 1. Normal chest.
--- NOTE | 2024-12-08 15:19 | W.ED.CHESTPA ---
HPI - Chest Pain General: Chief Complaint: Chest Pain Stated Complaint: chest pain rapid hr Time Seen by Provider: 12/08/24 15:13 History of Present Illness: Patient is a pleasant 29-year-old female with history of cardiomyopathy, EF of 25% at that time, now status post hysterectomy, that presents to the ED with palpitations. She has had a history of SVT, however not in some time. She is chronically on propranolol, and states that she took her medication today. She presents to the emergency room with a heart rate in the low 100s. Patient stated on the way over here from doctor's office, heart rate was 150. She did attempt Valsalva maneuvers. She has not had anything other than approximately [address] Llanes as far as caffeine in the last 24 hours. She has not had any energy drinks. This occurred 1 hour prior to arrival. She does have chest discomfort with the palpitations. No recent cold or illness. She is not on any supplements. She did attempt alprazolam prior to arrival to see if this helped with her SVT. She did have association of a synthetic anxiety with the palpitations Associated symptoms: Reports dyspnea and palpitations; Deny abdominal pain, fever(s), nausea or vomiting Related Data Previous Rx's ?Medication ?Instructions ?Recorded sumatriptan succinate 25 mg tablet See Rx Instructions PO .COMPLEX 04/22/24 #10 tabs alprazolam 0.25 mg tablet 0.25 mg PO BID PRN anxiety #20 tabs 10/20/24 propranolol 10 mg tablet 20 mg (2 x 10 mg) PO BID #120 tabs 12/08/24 Allergies Allergy/AdvReac Type Severity Reaction Status Date / Time No Known Allergies Allergy Verified 12/08/24 14:26 Review of Systems Const: Denies: fever(s) or chills Card: Reports: chest pain, palpitations and lightheadedness; Denies: irregular heart rhythm Resp: Reports: dyspnea; Denies: productive cough GI: Denies: abdominal pain, nausea or vomiting : Denies: flank pain or difficulty voiding Musc: Reports: neck pain and back pain Neuro: Denies: headache(s) or numbness in extremities Psych: Reports: anxiety (limited to course of events today) PFS ED PFSH: Medical History Migraine Cigarette smoker two packs a day or less Generalized anxiety disorder Excessive sweating History of cardiomyopathy Surgical History H/O: hysterectomy 07/04/2021- TVH performed by Dr. Dykes at [facility] Has one ovary left History of tubal ligation 2020 - Dr. Dykes at [facility]. History of nephrostomy (~2014) Had ecoli in her kidney at the time. S/P tonsillectomy History of dental surgery S/P cholecystectomy Family History Grandfather Hypertension Maternal grandfather Maternal grandfather Diabetes Maternal Grandfather Paternal grandfather Heart disease Maternal grandfather Grandmother Hypertension Maternal grandmother Paternal grandmother Diabetes Maternal grandmother Paternal grandmother Heart disease Maternal grandmother Breast cancer Paternal grandmother Father Diabetes Denies family history of Colon cancer Ovarian cancer Hyperlipidemia Family history of thyroid problem Uterine cancer Stroke Social History Smoking and tobacco/nicotine status: never used tobacco/nicotine Alcohol intake: never Substance/Drug Use: never Do you think of yourself as: Straight/Heterosexual Physical Exam Const: COMMON NORMALS: no acute distress, patient oriented x3 and no limitations HENMT: COMMON NORMALS: normocephalic and atraumatic HEAD & SCALP: normocephalic and atraumatic Neck/C-Spine: COMMON NORMALS: no JVD Cardio: COMMON NORMALS: no JVD, regular rate, regular rhythm, S2 normal heart sound present and Peripheral pulses 2+ throughout RATE: regular rate RHYTHM: regular rhythm HEART SOUNDS: S2 normal heart sound present and Murmur heart sound present systolic PERIPHERAL PULSES: Peripheral pulses 2+ throughout GI: COMMON NORMALS: Normal to inspection, nondistended, normoactive bowel sounds present, Soft to palpation and non-tender PALPATION: Yes Soft to palpation : COMMON NORMALS: Yes no CVA tenderness BLADDER/KIDNEY EXAM: Yes no CVA tenderness Back/Pelvis: COMMON NORMALS: no CVA tenderness Extremity: COMMON NORMALS: normal to inspection and full ROM Neuro: COMMON NORMALS: patient oriented x3, CN's II-XII intact bilaterally and moves all extremities Course ED course: Patient is a 29-year-old female with significant past medical history as noted, cardiomyopathy, now status post hysterectomy that presented with symptomatic anxiety and palpitation symptoms with a heart rate of 150. She had minimal caffeine. Magnesium is stable at 2.1. Recent TSH on 08/18/2024 is 1. Patient should follow-up with primary care outpatient for additional testing/event monitor/question of referral to electrophysiology dough panner since she is compliant to her propranolol. I did discuss no caffeine or supplements at this time. Reevaluation(s): Reevaluation #1: 1600: no issues with patient at this time. no more palpitations Vital Signs: Vital signs: Vital Signs Temperature 98.5 F 12/08/24 14:24 Pulse Rate 82 12/08/24 16:54 Respiratory Rate 18 12/08/24 14:24 Blood Pressure 114/77 12/08/24 14:24 Pulse Oximetry 99 12/08/24 16:54 Oxygen Delivery Me thod Room Air 12/08/24 16:54 MDM - Chest Pain Medical Decision Making Patient is a pleasant 29-year-old female with significant past medical history of cardiomyopathy with reduced EF, now recovered, that reports to emergency room with SVT symptoms/elevation of heart rate. TSH 08/21/2024 is 1.0, therefore will not repeat this. Will obtain routine lab work, and magnesium. Discussed with patient she may need additional event monitoring, Zio patch, and follow-up with electrophysiology dough panner for potentially mapping. Suspect cannot bundle/reentry although during her stay in the ED she has not had tachycardia. She does have early repolarization noted on my view on EKG. She will be holding all caffeine in the future as discussed. Lab Data 12/08/24 15:24 12/08/24 15:24 Radiology Impressions Chest X-Ray 12/08/24 14:50 IMPRESSION: 1. Normal chest. Laboratory Results WBC 7.25 10^3/uL (3.29-11.43) 12/08/24 15:24 RBC 4.88 10^6/uL (3.85-5.65) 12/08/24 15:24 Hgb 13.00 g/dL (11.27-16.99) 12/08/24 15:24 Hct 40.2 % (36-47) 12/08/24 15: MCV 82.4 fl (85-98) L 12/08/24 15: MCH 26.6 pg (27-33) L 12/08/24 15: MCHC 32.3 g/dL (30-55) 12/08/24 15: RDW 13.0 % (12.1-15.1) 12/08/24 15: Plt Count 249 10^3/cmm (157-399) 12/08/24 15: MPV 9.6 fL (7.4-10.4) 12/08/24 15: Neut % (Auto) 66.8 % 12/08/24 15: Lymph % (Auto) 27.0 % 12/08/24: Gila % (Auto) 5.0 % 12/08/24: Eos % (Auto) 0.4 % 12/08/24: Baso % (Auto) 0.4 % 12/08/24: Neut # (Auto) 4.84 10^3/uL (1.8-7.7) 12/08/24 15: Lymph # (Auto) 2.0 10^3/uL (0.8-4.8) 12/08/24 15: Gila # (Auto) 0.4 10^3/uL (0.2-0.9) 12/08/24 15: Eos # (Auto) 0.0 10^3/uL (0.0-0.8) 12/08/24: Baso # (Auto) 0.0 10^3/uL (0.0-0.1) 12/08/24: Nucleated RBC % (auto) 0 % 12/08/24: Nucleated RBCs # 0.0 /100WBC 12/08/24 15: D-Dimer <= 0.27 ug/mLFEU (0-0.59) 12/08/24 15:24 Sodium 140 mmol/L (136-145) 12/08/24 15:24 Potassium 3.9 mmol/L (3.5-5.1) 12/08/24 15: Chloride 101 mmol/L (98-107) 12/08/24 15:24 Carbon Dioxide 25 mmol/L (22-29) 12/08/24 15:24 Anion Gap 17.9 (5-19) 12/08/24 15:24 BUN 7 mg/dL (6-20) 12/08/24 15:24 Creatinine 0.6 mg/dL (0.5-0.9) 12/08/24 15:24 GFR Calculation 118.2 mL/min (90-130) 12/08/24 15:24 Glucose 102 mg/dL (65-115) 12/08/24 15:24 Calculated Osmolality 288 mOsm/kg (285-295) 12/08/24 15:24 Calcium 9.4 mg/dL (8.5-10.5) 12/08/24 15:24 Magnesium 2.1 mg/dL (1.7-2.3) 12/08/24 15:24 Total Bilirubin 0.2 mg/dL (0.15-1.2) 12/08/24 15:24 AST 14 U/L (0-32) 12/08/24 15:24 ALT 16 U/L (0-33) 12/08/24 15:24 Alkaline Phosphatase 124 U/L (35-105) H 12/08/24 15:24 Troponin T Baseline < 6 ng/L (0-10) 12/08/24 15:24 Troponin T 120 Minute < 6.0 ng/L (0-10) 12/08/24 17:14 Delta Troponin T 0 ABS# (0-10) 12/08/24 17:14 Total Protein 7.1 g/dL (6.6-8.7) 12/08/24 15:24 Albumin 4.5 g/dL (3.5-5.2) 12/08/24 15:24 Globulin 2.6 g/dL (1.3-4.6) 12/08/24 15:24 HCG, Qual Negative (Negative) 12/08/24 15:24 XR interpretation done by ED provider, pending radiology final review ED provider radiology interpretation(s): no acute EKG Data EKG 1: Interpretation: Normal axis, sinus rhythm, no ST segment elevation, early repolarization, QTc 402 Computer generated interpretation: Sinus rhythm, normal ECG Discharge Plan Discharge Patient Disposition: Home Clinical Impression: Tachycardia Chest pain Qualifiers: Chest pain type: other chest pain Qualified Code(s): R07.89 - Other chest pain Condition: Stable Prescriptions: No Action sumatriptan succinate 25 mg tablet See Rx Instructions PO .COMPLEX Qty: 10 0RF Rx Instructions: take 1 tab at onset of headache; if no relief may repeat 1 tab after at least 2 hrs; max = 4 tabs/24 hr PO alprazolam 0.25 mg tablet 0.25 mg PO BID PRN (Reason: anxiety) Qty: 20 0RF propranolol 10 mg tablet 20 mg PO BID Qty: 120 11RF Discharge Orders: Discharge Order (Routine); Ordered 12/08/24 Ordered By: Rosanna Vega Discharge ED (Routine); Ordered 12/08/24 Ordered By: Rosanna Vega Referrals: Gino Rose NP [Primary Care Provider, [facility]] Discharge Diet: As Directed Discharge Activity: Resume usual activity Patient Instructions: Supraventricular Tachycardia (ED), DASH Eating Plan (ED) Activity Restrictions/Additional Instructions: No caffeine, no energy drinks, no supplements Off work tomorrow Follow-up with your primary care for decision making regarding 30-day heart monitoring, and potentially referring you to electrophysiology dough panner as we discussed. Return to work on Friday. Off tomorrow Print Language: Tristanian Coding Level of Care Code ED Software Project Lead for Radha Cesar
[2024-12-08 15:48] LABS: Basophils % 0.4 %; Eosinophils % 0.4 %; Hematocrit 40.2 % (36-47); Mean Corpuscular HGB Conc 32.3 g/dL (30-55); Mean Corpuscular Hemoglobin 26.6 pg (27-33); Mean Corpuscular Volume 82.4 fl (85-98); Mean Platelet Volume 9.6 fL (7.4-10.4); Monocytes # 0.4 10^3/uL (0.2-0.9); Neutrophils # 4.84 10^3/uL (1.8-7.7); Neutrophils % 66.8 %; Nucleated Red Blood Cells % 0 %; Platelet Count 249 10^3/cmm (157-399); Red Blood Count 4.88 10^6/uL (3.85-5.65); White Blood Count 7.25 10^3/uL (3.29-11.43)
[2024-12-08 16:00] LABS: HCG, Serum Qual Negative (Negative)
[2024-12-08 16:05] LABS: D Dimer <= 0.27 ug/mLFEU (0-0.59)
[2024-12-08 16:12] LABS: Alanine Aminotransferase 16 U/L (0-33); Albumin Level 4.5 g/dL (3.5-5.2); Alkaline Phosphatase 124 U/L (35-105); Anion Gap 17.9 (5-19); Aspartate Amino Transferase 14 U/L (0-32); Blood Urea Nitrogen 7 mg/dL (6-20); Calcium 9.4 mg/dL (8.5-10.5); Carbon Dioxide 25 mmol/L (22-29); Chloride 101 mmol/L (98-107); Globulin 2.6 g/dL (1.3-4.6); Glomerular Filtration Rate 118.2 mL/min (90-130); Glucose 102 mg/dL (65-115); Magnesium 2.1 mg/dL (1.7-2.3); Osmolality Calculated 288 mOsm/kg (285-295); Potassium 3.9 mmol/L (3.5-5.1); Sodium 140 mmol/L (136-145); Total Bilirubin 0.2 mg/dL (0.15-1.2); Total Protein 7.1 g/dL (6.6-8.7)
[2024-12-08 16:28] LABS: Troponin(5th) Baseline < 6 ng/L (0-10)
--- NOTE | 2024-12-08 16:50 | ECG_ITS ---
[facility] Test Date: 2024-12-08 Pat Name: Erica Looney Department: Room: Gender: Female Cullet Washer: : 1995 Requested By: Gila Feliz Order Number: [id number] Reading MD: LUIS GAYLE Measurements Intervals [place] Rate: 81 P: 64 AR: 158 QRS: 79 QRSD: 99 T: 61 QT: 365 QTc: 425 Interpretive Statements SINUS RHYTHM Compared to ECG 12/08/2024 14:29:16 Sinus arrhythmia no longer present Electronically Signed On 12-09-2024 23:39:26 CDT by LUIS GAYLE [email or web address] Limitedmem[facility] hospital at stone countyColoWrapsuburban [id number]
[2024-12-08 16:54] VITALS: PULSE 82; O2SAT 99
[2024-12-08 17:43] LABS: Troponin 5 2HR < 6.0 ng/L (0-10); Troponin 5 2HR Delta 0 ABS# (0-10)
[2024-12-08 18:10] VITALS: BP 121/78; PULSE 81; O2SAT 99
== END 2024-12-08 18:18 | disposition home or self-care (01) ==
PROVIDERS: Emergency Medicine; Emergency Provider Physician Assistant; PCP Clinical Nurse Specialist Adult Health
DX: R00.0 Tachycardia, unspecified (principal); R07.89 Other chest pain
CPT/HCPCS: 36415; 71045; 80053; 83735; 84484; 84703; 85025; 85378; 93005; 99285

== ENCOUNTER 2025-04-04 06:01 | Day surgery (SDC) | payer MEDICAID, SELFPAY ==
[2025-04-04] VITALS (9 sets, daily range): BP systolic 102–127; BP diastolic 59–77; PULSE 50–80; RESP 13–18; TEMP 36.3–36.7; O2SAT 98–100; BMI 19.4
--- NOTE | 2025-04-04 | XR_ITS ---
WS: [id number] INTRAOPERATIVE TECHNIQUE: 1 Spot fluoroscopic images for intraoperative purposes. FLUOROSCOPY TIME: 1 minute 36 seconds CLINICAL INFORMATION: ORIF right 5th metatarsal base fracture FINDINGS: Screw fixation of fifth metatarsal base fracture XR/XR foot RT 2V [id number] IMPRESSION: Images obtained for intraoperative purposes.
--- NOTE | 2025-04-04 07:01 | P.HPUD_ITS ---
Surgery/Procedure H&P Update DATE OF PROCEDURE: April 04, 2025 DATE H&P PERFORMED: 03/29/25 H&P UPDATE INFORMATION: I have reviewed H&P completed within last 30 days, I have examined patient prior to procedure, No changes to prior documentation, H&P is in [facility] EMR on date indicated and Risks and benefits of the procedure reviewed PREOP DIAGNOSIS: Right foot Belcher fracture PLANNED PROCEDURE: Operation Date: 04/04/25 07:40 Proposed Procedures p ORIFright fifth metatarsal base fracture(Right) - Edgardo Zamora DPM
--- NOTE | 2025-04-04 07:04 | P.ANESASSM_ITS ---
Pre-Anesthetic Assessment Height/Weight: Height 5 ft 8 in Weight 128 lb O2 Del Method Room Air 04/04/25 06:16 Preop Diagnosis: Right foot Belcher fracture Operation Date: 04/04/25 07:40 Proposed Procedures p ORIFright fifth metatarsal base fracture(Right) - Edgardo Zamora DPM Was Beta Larry taken within 24 hours: Yes Was Clonidine taken within 24 hours: N/A Last intake: Intake Last Liquid Date 04/03/25 Last Liquid Time 21:00 Last Solid Date 04/03/25 Last Solid Time 21:00 Social Tobacco and No alcohol Exam alert, oriented x 3, clear to auscultation bilaterally and regular rate & rhythm Airway Submandibular: within normal limits Cervical ROM: within normal limits Mallampati: Class II Comments: Comments: Poor dentition, denies any loose teeth Anesthetic Plan ASA status: 3 Anesthesia: MAC Other: No prior issues with anesthesia N.p.o. since yesterday evening History of SVT, on chronic propranolol last taken yesterday Current smoker, vapes nicotine hCG negative METs greater than 4 Plan for MAC anesthesia with local via surgeon Medications/Allergies Home Medications ?Medication ?Instructions ?Recorded ?Confirmed ?Last Taken ?Type alprazolam 0.25 mg tablet 0.25 mg PO BID PRN anxiety # 20 tabs 10/20/24 04/04/25 Unknown Rx propranolol 10 mg tablet 20 mg (2 x 10 mg) PO BID #12 0 tabs 12/08/24 04/04/25 04/03/25 Rx promethazine-DM 6.25 mg-15 mg/5 mL 7.5 ml PO .at bedti me PRN cough 7 03/11/25 04/04/25 Unknown Rx oral syrup days #50 mL ondansetron 4 mg disintegrating 4 mg PO Q8H PRN nausea and 03/25/25 04/04/25 Unknown Rx tablet vomiting #60 tabs cam boot #1 ea 03/29/25 04/04/25 Unkn own Rx oxycodone-acetaminophen 5 mg-325 1 tab PO Q8H PRN Pain 03/29/25 04/04/25 03/31/25 History mg tablet (Percocet) sumatriptan succinate 25 mg tablet 25 mg PO DIRECTE D 03/31/25 04/04/25 Unknown History Allergies Allergy/AdvReac Type Severity Reaction Status Date / Time No Known Allergies Allergy Verified 04/04/25 06:16 Current Medications Generic Name Dose Route Start Last Admin Trade Name Bobbyq PRN Reason Stop Dose Admin Sodium Chloride 1,000 mls @ 30 mls/hr 04/04/25 06:30 04/04/25 06:38 Sodium Chloride 0.9% IV 04/05/25 06:29 30 mls/hr .Q24H CARLEY Administration [facility] Anesthesia Medical History Seasonal allergies Restless leg syndrome SVT (supraventricular tachycardia) Migraine Cigarette smoker two packs a day or less Generalized anxiety disorder Excessive sweating History of cardiomyopathy Surgical History H/O: hysterectomy 07/04/2021- TVH performed by Dr. Dykes at [facility] Has one ovary left History of tubal ligation 2020 - Dr. Dykes at [facility]. History of nephrostomy (~2014) Had ecoli in her kidney at the time. S/P tonsillectomy History of dental surgery S/P cholecystectomy Family History Grandfather Hypertension Maternal grandfather Maternal grandfather Diabetes Maternal Grandfather Paternal grandfather Heart disease Maternal grandfather Grandmother Hypertension Maternal grandmother Paternal grandmother Diabetes Maternal grandmother Paternal grandmother Heart disease Maternal grandmother Breast cancer Paternal grandmother Father Diabetes Denies family history of Colon cancer Ovarian cancer Hyperlipidemia Family history of thyroid problem Uterine cancer Stroke Social History Smoking and tobacco/nicotine status: current every day tobacco/nicotine user cigarettes Packs smoked per day: 0.25 Alcohol intake: never Substance/Drug Use: never Do you think of yourself as: Straight/Heterosexual Data Anesthesia Cardiac Studies: Echocardiogram Ultrasound 05/24/20
[2025-04-04] MEDS: ceFAZolin 2,000 mg SDV 2000 MG IVP (07:11)
[2025-04-04] MEDS: BUPivacaine 0.5% INJ 30 mL INJECTION (07:15)
--- NOTE | 2025-04-04 07:49 | P.BOP_ITS ---
Date of procedure: 04/04/25 Surgeon name: Dr. Edgardo Zamora, DPM Director Of Graduate Admissions(s) name(s): Yessica Procedure(s) performed: ORIF right 5th metatarsal base fracture Description of findings: Belcher fracture Estimated blood loss: 2cc Tourniquet time: no tourniquet Specimen(s) removed: none Post-operative diagnosis: Right foot belcher fracture
--- NOTE | 2025-04-04 08:50 | ANE.PACU2 ---
Inpatient post-anesthesia follow up: Airway intact: Yes Vital signs: Temperature 98.1 F Pulse Rate 64 Respiratory Rate 16 Blood Pressure 110/59 Pulse Oximetry 99 Oxygen Delivery Me thod Room Air Oxygen Flow Rate 8 Fraction of Inspir ed Oxygen Hydration adequate: Yes Nausea and vomiting: No Mental status: Baseline
--- NOTE | 2025-04-04 19:28 | P.OP_ITS ---
Operative Report Date of procedure: April 04, 2025 Surgeon: Edgardo Zamora DPM Procedure: Date of procedure: 04/04/2025 Pre-op diagnosis: Right fifth metatarsal base Post-op diagnosis: Same Post-op findings: Belcher fracture right foot Procedure done: ORIF right foot fifth metatarsal base fracture CPT 51902 Implants: Single 5.0 solid headed short thread screw from [employer] Specimens removed: None Surgeon: Dr. Edgardo Zamora DPM Advanced Practice Registered Nurse: Yessica Estimated blood loss: 2 cc Tourniquet time: No tourniquet used Complications: None Patient is a 29-year-old female that has a history of right foot fifth metatarsal base fracture. Surgical and nonsurgical options as well as benefits and limitations discussed with patient. Patient wishes to proceed with surgery at this time. A lengthy discussion regarding the procedure, including risks and complications has been had with the patient and is noted in the recent clinic note. Written and verbal consent have been obtained. All patient questions have been answered to the patient?s satisfaction. No written or verbal guarantees have been given or implied. The patient has been NPO since midnight. The history has been reviewed and the history and physical is current. The signed consent was confirmed and placed in the patient chart. Patient imaging has been reviewed and is consistent with the diagnosis. Under mild sedation, the patient was brought into the operating room and placed on the table in the supine position. IV antibiotics were given by the anesthesia team as preoperative surgical prophylaxis. IV sedation was then performed by the anesthesiateam. A pneumatic tourniquet was then placed about the right ankle. The operative extremity was then prepped and draped in the usual fashion. After prep, the following procedures then performed. Attention was directed to the right foot where the fifth metatarsal base fracture was visualized under fluoroscopy. Next a guidewire was driven from proximal to distal across the fifth metatarsal base fracture with a high and inside approach for ORIF of Belcher fracture. Good positioning of the K wire was visualized on AP and lateral views of C arm imaging. Next #15 blade was used to make a stab incision at the entrance point of the wire. Dissection was carried down to the fifth metatarsal base using mosquito hemostats with care to preserve the adjacent peroneus brevis tendon. Next soft tissue guide was inserted into the incision over the wire before cannulated drill system was used to drill over the wire down the fifth metatarsal. After drilling a reamer was inserted over the wire to ream the medullary canal of the fifth metatarsal. Finally, a 5.0 headed short thread screw from [employer] was inserted into the medullary canal of fifth metatarsal across the fracture site. Good compression was noted across fracture site. Good positioning of the fifth metatarsal base was noted. The site was irrigated with sterile saline before attention was directed to closure. Closure was performed using 4-0 nylon in horizontal mattress fashion. Incision site was dressed with Xeroform, 4 x 4 gauze, Kerlix, Long bandage. The patient tolerated the procedure and anesthesia well and without comp lication. The patient was transported from the operating room to the recovery room with vital signs stable and vascular status intact to all digits of the right foot. The patient was given both written and verbal instructions to remain nonweightbearing to the operative extremity, to keep dressings/splint clean, dry and intact and to take pain medication as directed. The patient will follow-up in the outpatient setting at their scheduled appointment. The patient was discharged with my personal number and was instructed to call if any questions or issues should arise. They were discharged home once anesthesia criteria was met.
== END 2025-04-04 08:50 | disposition home or self-care (01) ==
PROVIDERS: PCP Clinical Nurse Specialist Adult Health; Visit Provider Podiatrist Foot & Ankle Surgery
PROC: (CPT 28485; principal; 2025-04-04 07:40)
DX: S92.351A Displaced fracture of fifth metatarsal bone, right foot, initial encounter for closed fracture (principal); X58.XXXA Exposure to other specified factors, initial encounter; I47.10 Supraventricular tachycardia, unspecified; F17.210 Nicotine dependence, cigarettes, uncomplicated; F17.290 Nicotine dependence, other tobacco product, uncomplicated; F41.9 Anxiety disorder, unspecified
CPT/HCPCS: 28485; 73620; 76000; C1713; J0690; J2250; J2405; J2704; J3010; J3490; J7030; J9999

== ENCOUNTER → 2025-04-19 08:12 | Outpatient (BNVA) | payer MEDICAID, SELFPAY | PROVIDERS: PCP Clinical Nurse Specialist Adult Health; Visit Provider Podiatrist Foot & Ankle Surgery | DX: S99.191D Other physeal fracture of right metatarsal, subsequent encounter for fracture with routine healing (principal); X58.XXXD Exposure to other specified factors, subsequent encounter | CPT/HCPCS: 73630 ==

== ENCOUNTER → 2025-05-09 13:31 | Outpatient (BNVA) | payer MEDICAID, SELFPAY | PROVIDERS: PCP Clinical Nurse Specialist Adult Health; Visit Provider Podiatrist Foot & Ankle Surgery | DX: S99.191A Other physeal fracture of right metatarsal, initial encounter for closed fracture (principal); X58.XXXA Exposure to other specified factors, initial encounter | CPT/HCPCS: 73630 ==

== ENCOUNTER → 2025-05-24 08:19 | Outpatient (BNVA) | payer MEDICAID, SELFPAY | PROVIDERS: PCP Clinical Nurse Specialist Adult Health; Visit Provider Podiatrist Foot & Ankle Surgery | DX: S99.191A Other physeal fracture of right metatarsal, initial encounter for closed fracture (principal); X58.XXXA Exposure to other specified factors, initial encounter | CPT/HCPCS: 73630 ==

== ENCOUNTER 2025-05-31 06:46 | Outpatient (CLI) | payer MEDICAID, SELFPAY ==
--- NOTE | 2025-05-31 07:00 | CT_ITS ---
WS: [id number] CT RIGHT FOOT, NONCONTRAST HISTORY: stress fracture, right Technique: All CT scans at [facility] use at least one of these dose optimization techniques: automated exposure control; mA and/or kV adjustment per patient size (includes targeted exams where dose is matched to clinical indication); or iterative reconstruction. DLP: 130.00 mGy.cm COMPARISON: 04/04/2025, 03/24/2025, 04/19/2025 Orthopedic screw has been placed through the proximal fifth metatarsal secondary to a Belcher fracture previously described. Incomplete healing of the fracture. Majority of the fracture has healed. The head of the screw abuts into the articulation with the cuboid but this is similar to the study obtained postoperatively. No lucency surrounding the screw. No screw fracture. There is a small amount of soft tissue edema surrounding the fifth metatarsal head but no obvious fracture is identified. No additional fractures or malalignment. CT/CT foot RT wo con* [id number] IMPRESSION: 1. Orthopedic screw stabilizing partially healed fracture in the fifth metatar devora. 2. The screw head protrudes into the articulation with the cuboid but similar to the postoperative imaging. 3. Small amount of edema adjacent to the fifth metatarsal head but no fracture identified.
== END 2025-05-31 06:47 | disposition home or self-care (01) ==
LOC: RAD 06:47
PROVIDERS: PCP Clinical Nurse Specialist Adult Health; Visit Provider Podiatrist Foot & Ankle Surgery
DX: S92.351G Displaced fracture of fifth metatarsal bone, right foot, subsequent encounter for fracture with delayed healing (principal); X58.XXXD Exposure to other specified factors, subsequent encounter
CPT/HCPCS: 73700

== ENCOUNTER 2025-06-13 07:10 | Day surgery (SDC) | payer MEDICAID, SELFPAY ==
[2025-06-13] VITALS (10 sets, daily range): BP systolic 98–148; BP diastolic 57–74; PULSE 55–74; RESP 11–21; TEMP 36.1–36.8; O2SAT 97–100; BMI 30.4
--- NOTE | 2025-06-13 | XR_ITS ---
WS: [id number] XR foot RT 2V [id number] REASON FOR EXAM: Painful hardware right foot FINDINGS: Removal of screw for fixation of base of fifth metatarsal fracture. Fracture site healed. No remnant surgical appliance within the fifth metatarsal or adjacent soft tissues. XR/XR foot RT 2V [id number] IMPRESSION: Fifth metatarsal hardware removal as above.
--- NOTE | 2025-06-13 07:46 | ANES.PREANE2 ---
Pre-Anesthetic Assessment Height/Weight: Height 5 ft 8 in Weight 200 lb Temp Pulse Resp BP Pulse Ox O2 Del Method 98.3 F 70 18 148/74 99 Room Air 06/13/25 07:29 06/13/25 07:29 06/13/25 07:29 06/13/25 07:29 06/13/25 07:29 06/13/25 07:29 Preop Diagnosis: Painful hardware right foot Operation Date: 06/13/25 08:50 Proposed Procedures p Hardware Removal Ankle/Foot Foot Hardware Removal(Right) - LYDIA HooverM Was Beta Larry taken within 24 hours: Yes Was Clonidine taken within 24 hours: N/A Last intake: Intake Last Liquid Date 06/12/25 Last Liquid Time 23:30 Last Solid Date 06/12/25 Last Solid Time 19:00 Social Tobacco and No alcohol Exam alert, oriented x 3, clear to auscultation bilaterally and regular rate & rhythm Airway Submandibular: within normal limits Cervical ROM: within normal limits Mallampati: Class II Comments: Comments: Poor dentition, denies any loose teeth Anesthetic Plan ASA status: 3 Anesthesia: General Other: No prior issues with anesthesia N.p.o. since yesterday evening Similar procedure in March without issues History of SVT, on chronic propranolol last taken yesterday Current smoker, vapes nicotine Prior hysterectomy METs greater than 4 Plan for MAC anesthesia with local via surgeon Medications/Allergies Home Medications ?Medication ?Instructions ?Recorded ?Confirmed ?Last Taken ?Type alprazolam 0.25 mg tablet 0.25 mg PO BID PRN anxiety #20 tabs 10/20/24 06/09/25 Unknown Rx propranolol 10 mg tablet 20 mg (2 x 10 mg) PO BID #120 tabs 12/08/24 06/09/25 06/08/25 Rx ondansetron 4 mg disintegrating 4 mg PO Q8H PRN nausea and 03/25/25 06/09/25 06/08/25 Rx tablet vomiting #60 tabs cam boot #1 ea 03/29/25 06/07/25 Unknown Rx sumatriptan succinate 25 mg tablet 25 mg PO DIRECTED 03/31/25 06/09/25 06/08/25 History tramadol 50 mg tablet 50 mg PO Q6H PRN pain 4 days #16 05/24/25 06/09/25 Unknown Rx tabs Allergies Allergy/AdvReac Type Severity Reaction Status Date / Time No Known Allergies Allergy Verified 06/07/25 08:17 Current Medications Generic Name Dose Route Start Last Admin Trade Name Artie PRN Reason Stop Dose Admin Sodium Chloride 1,000 mls @ 30 mls/hr 06/13/25 07:15 06/13/25 07:40 Sodium Chloride 0.9% IV 06/14/25 07:14 30 mls/hr .Q24H CARLEY Administration [facility] Anesthesia Medical History Seasonal allergies Restless leg syndrome SVT (supraventricular tachycardia) Migraine Cigarette smoker two packs a day or less Generalized anxiety disorder Excessive sweating History of cardiomyopathy Surgical History H/O: hysterectomy 07/04/2021- TV performed by Dr. Dykes at [facility] Has one ovary left History of tubal ligation 2020 - Dr. Dykes at [facility]. History of nephrostomy (~2014) Had ecoli in her kidney at the time. S/P tonsillectomy History of dental surgery S/P cholecystectomy Family History Grandfather Hypertension Maternal grandfather Maternal grandfather Diabetes Maternal Grandfather Paternal grandfather Heart disease Maternal grandfather Grandmother Hypertension Maternal grandmother Paternal grandmother Diabetes Maternal grandmother Paternal grandmother Heart disease Maternal grandmother Breast cancer Paternal grandmother Father Diabetes Denies family history of Colon cancer Ovarian cancer Hyperlipidemia Family history of thyroid problem Uterine cancer Stroke Social History Smoking and tobacco/nicotine status: unknown if used tobacco/nicotine Alcohol intake: never Substance/Drug Use: never Do you think of yourself as: Straight/Heterosexual Data Anesthesia Cardiac Studies: Echocardiogram Ultrasound 05/24/20
--- NOTE | 2025-06-13 08:51 | W.PM.OPSUD ---
Surgery/Procedure H&P Update DATE OF PROCEDURE: June 13, 2025 DATE H&P PERFORMED: 06/07/25 H&P UPDATE INFORMATION: I have reviewed H&P completed within last 30 days, I have examined patient prior to procedure, No changes to prior documentation, H&P is in [facility] EMR on date indicated and Risks and benefits of the procedure reviewed PREOP DIAGNOSIS: Painful hardware right foot PLANNED PROCEDURE: Operation Date: 06/13/25 08:50 Proposed Procedures p Hardware Removal Ankle/Foot Foot Hardware Removal(Right) - Edgardo Zamora DPM
[2025-06-13] MEDS: ceFAZolin 2,000 mg SDV 2000 MG IVP (09:10)
[2025-06-13] MEDS: BUPivacaine 0.5% INJ 30 mL INJECTION (09:15)
--- NOTE | 2025-06-13 10:11 | P.BOP_ITS ---
Date of procedure: 06/13/2025 Surgeon name: Dr. Edgardo Zamora DPM [employer] Installer(s) name(s): Jan Procedure(s) performed: Right foot hardware removal Description of findings: Right foot painful hardware Estimated blood loss: 5cc Tourniquet time: 31 minutes Specimen(s) removed: Screw right foot Post-operative diagnosis: Painful hardware right foot
--- NOTE | 2025-06-13 10:12 | PM.OP ---
Operative Report Date of procedure: June 13, 2025 Surgeon: Edgardo Zamora DPM Procedure: Date of procedure: 06/13/2025 Pre-op diagnosis: Painful hardware right foot Post-op diagnosis: Same Post-op findings: Orthopedic screw was backing out into the tarsometatarsal joint Procedure done: Hardware removal right foot CPT 17642 Implants: None Specimens removed: Orthopedic screw right foot Surgeon: Dr. Edgardo Zamora DPM Rfid Developer: Jan Estimated blood loss: 5 cc Tourniquet time: 31 minutes Complications: None Patient is a 30-year-old female that has a history of painful hardware right foot. The patient has had the aforementioned chief complaint for some time. Conservative treatment measures have been attempted and the patient has opted for surgical intervention at this time. A lengthy discussion regarding the procedure, including risks and complications has been had with the patient and is noted in the recent clinic note. Written and verbal consent have been obtained. All patient questions have been answered to the patient?s satisfaction. No written or verbal guarantees have been given or implied. The patient has been NPO since midnight. The history has been reviewed and the history and physical is current. The signed consent was confirmed and placed in the patient chart. Patient imaging has been reviewed and is consistent with the diagnosis. Under mild sedation, the patient was brought into the operating room and placed on the table in the supine position. IV antibiotics were given by the anesthesia team as preoperative surgical prophylaxis. General sedation was then performed by the anesthesiateam. A local field block was performed using 0.5% Marcaine plain. A pneumatic tourniquet was then placed about the right ankle. The operative extremity was then prepped and draped in the usual fashion. The extremity was then elevated and exsanguinated before the tourniquet was inflated to 250 mmHg. After inflation, the following procedure was then performed. Attention was directed to the right foot where a 3 cm incision was made overlying the fifth metatarsal base and cuboid. Dissection was carried down through subcutaneous and superficial fascia. Care was taken to identify the peroneal tendons and to retract them out of the operative field. Dissection was carried out to expose the head of the orthopedic screw. This was noted to have a head present in the tarsometatarsal articulation. This is likely causing patient's symptoms with ambulation. Screws removed without incident passed from the operative field. Site was irrigated with copious amounts of sterile saline before attention was directed to closure. Deep tissue was closed with 3-0 Vicryl followed by subcuticular closure with 4-0 Vicryl and skin was closed with 4-0 nylon in horizontal mattress fashion. Incision site was dressed with Xeroform, 4 x 4 gauze, Kerlix, Long The patient tolerated the procedure and anesthesia well and without complication. The patient was transported from the operating room to the recovery room with vital signs stable and vascular status intact to all digits of the right foot. The patient was given both written and verbal instructions to remain weight-bear as tolerated to the operative extremity, to keep dressings/splint clean, dry and intact and to take pain medication as directed. The patient will follow-up in the outpatient setting at their scheduled appointment. The patient was discharged with my personal number and was instructed to call if any questions or issues should arise. They were discharged home once anesthesia criteria was met.
--- NOTE | 2025-06-13 11:20 | ANE.PACU2 ---
Inpatient post-anesthesia follow up: Airway intact: Yes Vital signs: Temperature 96.9 F Pulse Rate 65 Respiratory Rate 17 Blood Pressure 113/70 Pulse Oximetry 98 Oxygen Delivery Me thod Room Air Oxygen Flow Rate 10 Fraction of Inspir ed Oxygen Hydration adequate: Yes Nausea and vomiting: No Pain level: 1 Mental status: Baseline
== END 2025-06-13 11:20 | disposition home or self-care (01) ==
PROVIDERS: PCP Clinical Nurse Specialist Adult Health; Visit Provider Podiatrist Foot & Ankle Surgery
PROC: (CPT 20680; principal; 2025-06-13 08:40)
DX: T84.84XA Pain due to internal orthopedic prosthetic devices, implants and grafts, initial encounter (principal); Y70.2 Prosthetic and other implants, materials and accessory anesthesiology devices associated with adverse incidents; I47.10 Supraventricular tachycardia, unspecified; F17.290 Nicotine dependence, other tobacco product, uncomplicated; F41.9 Anxiety disorder, unspecified
CPT/HCPCS: 20680; 73620; 76000; J0690; J1100; J2250; J2405; J2704; J3010; J3490; J7030; J9999

== ENCOUNTER 2025-07-08 12:50 | Outpatient (CLI) | payer MEDICAID, SELFPAY ==
[2025-07-08 14:21] LABS: Free T4 Free Thyroxine 1.16 ng/dL (0.82-1.77); Thyroid Stimulating Hormone 0.69 uIU/mL (0.27-4.20)
[2025-07-08 15:21] LABS: Follicle Stimulating Hormone 4.7 mIU/mL; Vitamin B12 531 pg/mL (232-1245)
== END 2025-07-08 12:51 | disposition home or self-care (01) ==
LOC: LAB 12:52
PROVIDERS: PCP Clinical Nurse Specialist Adult Health; Visit Provider Clinical Nurse Specialist Adult Health
DX: R53.83 Other fatigue (principal); R35.0 Frequency of micturition; F41.1 Generalized anxiety disorder
CPT/HCPCS: 36415; 81000; 82306; 82607; 82672; 83001; 84439; 84443; 84481; 87086